=== PATIENT | female | born 1970 | race Caucasian/White ===

== ENCOUNTER → 2017-01-05 | Outpatient (CLI) | payer BC, OTHER | LOC: ULTRA 02:14 | DX: N63 Unspecified lump in breast (principal); N60.09 Solitary cyst of unspecified breast ==

== ENCOUNTER → 2017-06-22 | Outpatient (CLI) | payer BC, OTHER | LOC: RAD 04:55 | DX: R92.8 Other abnormal and inconclusive findings on diagnostic imaging of breast (principal) ==

== ENCOUNTER → 2018-01-13 | Outpatient (CLI) | payer BC, OTHER | LOC: RAD 01:02 | DX: Z12.31 Encounter for screening mammogram for malignant neoplasm of breast (principal) ==

== ENCOUNTER → 2019-01-18 | Outpatient (CLI) | payer BC, OTHER | LOC: RAD 09:38 | DX: Z12.31 Encounter for screening mammogram for malignant neoplasm of breast (principal) ==

== ENCOUNTER → 2020-02-26 | Outpatient (CLI) | payer BC, OTHER | LOC: RAD 13:13 → BC 13:48 → RAD 14:27 | DX: Z12.31 Encounter for screening mammogram for malignant neoplasm of breast (principal) ==

== ENCOUNTER → 2021-04-28 | Outpatient (CLI) | payer OTHER | LOC: ULTRA 10:22 → RAD 10:22 | PROVIDERS: ATTEND Obstetrics & Gynecology | DX: Z12.31 Encounter for screening mammogram for malignant neoplasm of breast (principal); N60.02 Solitary cyst of left breast; N63.24 Unspecified lump in the left breast, lower inner quadrant ==